=== PATIENT | male | born 1945 | race Caucasian/White ===

== ENCOUNTER → 2024-12-26 | Outpatient (CLI) | payer MEDICARE ==
[~2024-12-26] MED LIST: PROHANCE 279.3MG/ML 15ML VIAL As Ordered ONE
== END ==
LOC: M RAD 12:20
PROVIDERS: ATTEND Podiatrist
DX: T84.490A Other mechanical complication of muscle and tendon graft, initial encounter (principal)
CPT/HCPCS: 73723; A9576